=== PATIENT | female | born 1985 | race Caucasian/White ===

== ENCOUNTER 2018-12-07 06:33 | Day surgery (SDC) | payer OTHER ==
[~2018-12-07 06:33] MED LIST: Acetaminophen TAB* 325 MG PO ONE; Buffered Lidocaine 1% SYRIN* 1 ML/SYRINGE INTRADERM ONE; Famotidine IV* 10 MG/ML 2 ML (20 mg) IV ONE; Gabapentin CAP(*) 400 MG PO ONE; Lactated Ringers 1000 ML Bag* 1,000 ML IV SCH
[2018-12-07] MEDS ORDERED: Acetaminophen TAB* 325 MG ONE (08:06)
[2018-12-07] MEDS ORDERED: Gabapentin CAP(*) 400 MG PO ONE (08:06)
[2018-12-07] MEDS ORDERED: Famotidine IV* 10 MG/ML 2 ML (20 mg) ONE (08:06)
[2018-12-07] MEDS ORDERED: Midazolam* 1 MG/ML 2 ML VIAL (2 MG) ONE ×2 (08:37→09:41)
[2018-12-07] MEDS ORDERED: fentaNYL* 50 MCG/ML 2 ML VIAL (100 MCG VIAL) ONE ×3 (08:37→13:59)
[2018-12-07] MEDS ORDERED: Lidocaine 1% INJ* 10 MG/ML 30 ML SDV ONE (09:11)
[2018-12-07] MEDS ORDERED: Bupivacaine 0.25% SDV PF* 10 ML VIAL INJ ONE (09:11)
[2018-12-07] MEDS ORDERED: Succinylcholine* 20 MG/ML 10 ML VIAL ONE (09:41)
[2018-12-07] MEDS ORDERED: Cisatracurium* 2 MG/ML MDV 5 ML ONE (09:41)
[2018-12-07] MEDS ORDERED: Lidocaine 2% PF * 5 ML VIAL ONE (10:38)
[2018-12-07] MEDS ORDERED: Propofol* 10 MG/ML 20 ML BTL ONE (10:38)
[2018-12-07] MEDS ORDERED: Dexamethasone IV* 4 MG/ML 1 ML (4 MG) ONE (10:38)
[2018-12-07] MEDS ORDERED: Ondansetron INJ* 2 MG/ML VIAL ONE ×2 (10:38→14:00)
--- NOTE | 2018-12-07 12:25 | BRIEFOPN ---
Brief Operative/Procedure Note - Operation Details Pre-Op Diagnosis: thyroid carcinoma Post-Op Diagnosis: same Procedures: total thyroidectomy Surgeon(s)/Proceduralists: Ned. Assist: JALEEL Rea Anesthesia: GET Estimated Blood Loss: < 50 ml; Fluids: 750 ml RL Findings: as above Specimen(s)/Culture(s) Description: thyroid gland Complications: none
[2018-12-07] MEDS ORDERED: Naloxone* 0.4 MG/ML 1 ML VIAL IV PRN ×2 (12:55→16:33)
[2018-12-07] MEDS ORDERED: DiMENhydriNATE IV* 50 MG/ML VIAL IV PUSH PRN ×2 (12:55→16:31)
[2018-12-07] MEDS ORDERED: fentaNYL* 50 MCG/ML 2 ML VIAL (100 MCG VIAL) IV PRN (12:55)
[2018-12-07] MEDS ORDERED: Ondansetron INJ* 2 MG/ML VIAL IV PRN (12:55)
[2018-12-07] MEDS ORDERED: HYDROcodone/ACETAMIN 5-325 MG* 1 TAB PO PRN ×2 (12:55→16:31)
[2018-12-07] MEDS ORDERED: HYDROcodone/ACETAMIN 5-325 MG* 1 TAB ONE ×2 (13:37→17:33)
[2018-12-07 17:36] VITALS: BP 124/86
--- NOTE | 2018-12-07 18:25 | OP ---
DATE OF OPERATION: 12/07/18 - [facility] DATE OF : 89 SERVICE: General Surgery. ATTENDING SURGEON: Samantha Marino MD SENIOR RESEARCH ANALYST: JALEEL Flores ANESTHESIOLOGIST: Renny Ruiz MD ANESTHESIA: General endotracheal anesthesia. PRE-OP DIAGNOSIS: Right-sided papillary thyroid carcinoma. POST-OP DIAGNOSIS: Right-sided papillary thyroid carcinoma. OPERATIVE PROCEDURE: Total thyroidectomy. ESTIMATED BLOOD LOSS: Minimal, less than 10 cc. SPECIMEN: Right thyroid lobe and left thyroid lobe. INDICATIONS FOR SURGERY: Ms. Lane is a very pleasant 33-year-old female with history of Amisha's thyroiditis who was found on surveillance ultrasound to have a suspicious subcentimeter thyroid nodule that was biopsied as papillary thyroid carcinoma. Given that she already had hypothyroidism, she elected to undergo a total thyroidectomy. She understood the risks, benefits, and alternatives of the procedure. She understood that the risks included but were not limited to bleeding, infection, injury to nearby structures such as the recurrent laryngeal nerve. She understood these and wished to proceed. DESCRIPTION OF PROCEDURE: The patient was brought back to the operating room and placed on the operating table in a supine position. Sequential compression devices were placed on the bilateral lower extremities for DVT prophylaxis. No antibiotics were administered. General endotracheal anesthesia was induced and then electrodes to the nerve monitor were attached. Both arms were tucked and then a time-out was performed prior to administering local anesthesia to her neck. 0.25% Marcaine plus 1% lidocaine was infiltrated into the subcutaneous tissue of her anterior neck. After this, her neck was prepped and draped in normal sterile fashion. Prior to beginning the procedure, a second time-out was performed verifying the patient's name, MR number, and the procedure to be performed. An approximately 4 cm incision was made in the mid anterior neck approximately 2 fingerbreadths above the sternal notch in the natural crease line. The skin was divided down to subcutaneous tissue. The platysma was divided and then the inferior and superior subplatysmal flaps were developed. Next, the median raphe between the strap muscles was identified and divided allowing the strap muscles to be retracted laterally off of the isthmus of the thyroid. Next, the isthmus of the thyroid was divided off of the trachea at the midline. Since the cancer was located on the right thyroid lobe, attention was first turned towards removing the right thyroid lobe. The medial attachments to the trachea and the right thyroid lobe were divided using LigaSure. The space of Diaz between the cricothyroid muscle and the upper pole vessels were divided and then the strap muscles were retracted laterally off of the right thyroid lobe. The middle thyroid vein was divided and then the superior pole vessels were divided using combination of LigaSure and 2-0 silk ties. Next, the thyroid was able to be rotated medially and anteriorly out of the neck and the recurrent laryngeal nerve was then identified and traced out in its entire path as it entered into the cricothyroid muscle. During this dissection, the upper and lower parathyroid glands were also identified and preserved on their pedicles. After the recurrent laryngeal nerve was completely identified, the right thyroid lobe was able to be taken off the trachea using LigaSure. Once this was completely removed, its upper pole was marked with a suture and it was examined very carefully. Again, no parathyroid glands were identified because they were identified in situ in the neck. The specimen was then carried off the table. Next, attention was turned towards the left thyroid lobe. In a similar fashion to the right thyroid lobe, the medial attachments to the trachea were divided using LigaSure. The space of Diaz was developed. The strap muscles were then retracted laterally off of the thyroid lobe and the middle thyroid vein was identified and divided. The left thyroid lobe was then able to be rotated medially and anteriorly out of the neck and the recurrent laryngeal nerve was identified and its course was traced out. The superior and inferior parathyroid glands were also identified and preserved on their pedicles and then thyroid gland was able to be divided off the trachea using a LigaSure with care to avoid injury to the recurrent laryngeal nerve. After this was done, the thyroid gland was examined carefully. Again no parathyroid glands were identified given that were seen in situ in the neck. The upper pole was marked and it was then carried off the table as specimen. Attention was then turned towards obtaining hemostasis in both right and left lateral necks after performing a Valsalva. After this was done, Tisseel was placed in the lateral necks and the strap muscles were reapproximated using interrupted 4-0 Vicryl sutures. The platysma was reapproximated using interrupted 4-0 Vicryl sutures and the skin was closed using running 5-0 Prolene suture. Sterile dressing was then placed. The patient's anesthesia was reversed and she was taken to the PACU in stable condition. At the end of the case, all counts were correct and I was present during the entirety of the case. [id number]/[facility] #: [id number] MTDD
== END 2018-12-07 18:27 | disposition home or self-care (01) ==
LOC: OR 06:33
PROVIDERS: ATTEND Surgery
DX: C73 Malignant neoplasm of thyroid gland (principal); E06.3 Autoimmune thyroiditis; E03.9 Hypothyroidism, unspecified
CPT/HCPCS: 81025; 88307; A9270-GY; C1776; J0330; J1100; J2250; J2405; J2704; J3010; J3490